=== PATIENT | male | born 1955 | race Caucasian/White ===

== ENCOUNTER 2019-12-13 15:39 | Emergency (ER) | payer MEDICARE, MEDICAID ==
[~2019-12-13] VITALS: Ht 193 cm; Wt 89.7 kg
[~2019-12-13 15:39] MED LIST: ARIP5TAB13 PO; FINA5TAB4 PO; MEMA10TA PO; OMEP40CA42 PO; SERT25TA3 PO; TAMS-11 PO; TRAZ50TA66 PO
--- NOTE | 2019-12-13 16:19 | NUR ---
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
--- NOTE | 2019-12-13 16:32 | NUR ---
ASSUMED CARE OF PATIENT. PATIENT REPORTS RIGHT FLANK PAIN X5 HOURS WITH PAINFUL URINATION. VS STABLE. NO ACUTE DISTRESS NOTED. CALL LIGHT IN PLACE. WARM BLANKET GIVEN. WILL CONTINUE TO MONITOR.
--- NOTE | 2019-12-13 17:08 | NUR ---
DR STEPHENS HAS SEEN PATIENT.
[2019-12-13 17:25] LABS: MICROSCOPIC INDICATED
--- NOTE | 2019-12-13 18:05 | NUR ---
REPORT GIVEN TO SHERIF BARRIENTOS FOR BREAK.
--- NOTE | 2019-12-13 19:00 | NUR ---
REPORT GIVEN TO SHERIF RIOS
[2019-12-13 19:33] VITALS: BP 126/81
--- NOTE | 2019-12-13 19:34 | NUR ---
Patient/Caregiver given discharge instructions and they have confirmed that they understand the instructions. Patient ambulatory with steady gait.
== END 2019-12-13 19:35 | disposition home or self-care (01) ==
LOC: ED 19:30
DX: M54.5 Low back pain (principal); R30.0 Dysuria; J44.9 Chronic obstructive pulmonary disease, unspecified; Z87.891 Personal history of nicotine dependence
CPT/HCPCS: 74176; 81001; 87086; 99284

== ENCOUNTER → 2019-12-31 | Outpatient (CLI) | payer MEDICARE, MEDICAID ==
[~2019-12-31] MED LIST changes: +OMNIPAQUE 350 MG/ML, 100ML BOTTLE ONE
== END | disposition home or self-care (01) ==
LOC: CFH 13:52
PROVIDERS: ATTEND Internal Medicine Hematology & Oncology
DX: C34.11 Malignant neoplasm of upper lobe, right bronchus or lung (principal); R91.1 Solitary pulmonary nodule; M47.816 Spondylosis without myelopathy or radiculopathy, lumbar region; J43.9 Emphysema, unspecified
CPT/HCPCS: 71260; 74177; Q9967